=== PATIENT | male | born 2000 | race African-American/Black ===

== ENCOUNTER 2019-02-28 05:12 | Emergency (ER) | payer BC, OTHER ==
[2019-02-28] MEDS: BENZONATATE 100 MG CAP PO (06:11)
[2019-02-28] MEDS: predniSONE 20 MG TAB PO (06:11)
== END 2019-02-28 06:17 | disposition home or self-care (01) ==
LOC: FTE 05:12
DX: R21 Rash and other nonspecific skin eruption (principal); T42.6X5A Adverse effect of other antiepileptic and sedative-hypnotic drugs, initial encounter; J40 Bronchitis, not specified as acute or chronic; Z87.891 Personal history of nicotine dependence
CPT/HCPCS: 99283